=== PATIENT | female | born 1950 | race Caucasian/White ===

== ENCOUNTER 2016-06-16 21:03 | Inpatient (IN) ==
[2016-06-16 21:34] LABS: MANUAL DIFF NEEDED? NO
[2016-06-16 21:48] LABS: BASO% 0.3 % (0.0-0.8); EOS% 1.6 % (0.0-10.0); HEMATOCRIT 34.5 % (37.0-47.0); IMM GRAN# 0.02 X1000 (0.0-0.04); IMM GRAN% 0.3 % (0.0-0.5); LYMPH# 1.95 X1000 (1.2-3.4); MCH 30.8 PG (27-31); MCHC 34.8 g/dL (33-37); MCV 88.7 FL (81-99); MONO# 0.36 X1000 (0.11-0.59); MONO% 5.7 % (1.7-9.3); MPV 9.6 FL (7.4-10.4); NEUT% 61.1 % (42.2-75.2); PLT 261 X1000 (130-400); RBC 3.89 XMIL (4.2-5.4)
[2016-06-16 22:31] LABS: ALBUMIN 3.8 g/dL (3.5-5.0); CALCIUM 8.9 mg/dL (8.8-10.2); POTASSIUM 3.7 mmol/L (3.5-5.1); TOTAL BILIRUBIN 0.2 mg/dL (0.20-1.00); TOTAL PROTEIN 6.1 g/dL (6.3-8.3)
[2016-06-16 22:42] LABS: INR 1.02 (0.86-1.15); PROTIME 13.7 Seconds (12.1-15.5)
[2016-06-16 22:43] LABS: PTT PL 29.3 Seconds (22.6-43.9)
[2016-06-17 00:57] LABS: AMYLASE 60 U/L (20-200); LIPASE 68 U/L (13-60)
[2016-06-17] MEDS ORDERED: MORPHINE IV PRN ×2 (01:35→09:45)
[2016-06-17] MEDS ORDERED: NS 1,000 ML IV ONE ×3 (01:35→01:55)
[2016-06-17] MEDS ORDERED: ROCEPHIN 1 GM/NS 1 GM/50 ML IVPB IV ONE (01:35)
[2016-06-17] MEDS ORDERED: ZOFRAN IV PRN (01:35)
[2016-06-17] MEDS ORDERED: ROCEPHIN 1 GM/NS 1 GM/50 ML IVPB ONE (02:30)
[2016-06-17 03:31] LABS: BILIRUBIN URINE NEGATIVE (NEGATIVE); BLOOD URINE 3+ (NEGATIVE); CLARITY CLEAR (CLEAR); COLOR YELLOW; GLUCOSE URINE NEGATIVE (NEGATIVE); LEUKOCYTES URINE TRACE (NEGATIVE); NITRITE URINE NEGATIVE (NEGATIVE); PH URINE 6.5; PROTEIN URINE TRACE mg/dL (NEGATIVE); UROBILINOGEN URINE NORMAL
--- NOTE | 2016-06-17 03:33 | PROVIDER DOCUMENTATION ---
This chart was entered by Chelsea Villarreal Scribe, acting as scribe for Bonilla Moffett DO. HPI-Abdominal Pain/GI Problem - General Chief Complaint: General Adult Stated Complaint: CRYING, NUMBNESS, NAUSEA, ABD PAIN Time Seen by Provider: 06/16/16 21:05 Allergies/Adverse Reactions: Patient Allergies Allergy/AdvReac Type Severity Reaction Status Date / Time No Known Allergies Allergy Verified 06/16/16 21:07 Home Medications: Home Medication List Medication Instructions Recorded Confirmed Last Taken Type Metformin [Glucophage] 500 mg PO WBREAKFAST 04/26/12 05/13/14 06/16/16 History Metoprolol Tartrate 50 mg PO BID 05/13/14 05/13/14 06/16/16 History Famotidine 20 mg PO DAILY 06/16/16 06/16/16 06/16/16 History Hydrochlorothiazide 25 mg PO DAILY 06/16/16 06/16/16 06/16/16 History Lisinopril 40 mg PO DAILY 06/16/16 06/16/16 06/16/16 History Montelukast [Singulair] 10 mg PO DAILY 06/16/16 06/16/16 06/16/16 History Sertraline [Zoloft] 100 mg PO DAILY 06/16/16 06/16/16 06/16/16 History - History of Present Illness-ABD Nature of Presenting Problems: PT IS A 65YOF PRESENTING TO THE ED C/O ABD PAIN AND SWELLING. PT STATES ABD PAIN BEGAN TODAY AND SHE CONTINUES TO SWELL/ PT HAS N/V/D NO FEVER CP OR OTHER COMPLAINT AT THIS TIME. Abdominal Pain Onset Location: reports: generalized abdomen Pain Radiation: reports: no radiation Quality of Pain: reports: aching, cramping Severity in ED: reports: mild Onset/Duration: reports: 24 hours ago Timing: reports: still present Activities at Onset: reports: light activity Exposure to sick contacts?: No Modifying Factors: improves with: nothing Associated Symptoms: reports: diarrhea, fatigue, malaise, nausea, vomiting. denies: chest pain, diaphoresis, swelling/mass in abdomen Last BM: unsure Dark Stools Present?: reports: none noticed Rectal Bleeding: reports: none Rectal Pain: reports: none Emesis Description: reports: none Bruising or Bleeding Gums?: No Similar Symptoms Previously?: No Recently seen or treated by another doctor?: No Review of Systems - Adult - REVIEW OF SYSTEMS - ADULT Constitutional: reports: no symptoms reported Eyes: reports: no symptoms reported Ears, Nose, Mouth & Throat: reports: no symptoms reported Cardiovascular: reports: no symptoms reported Respiratory: reports: no symptoms reported Gastrointestinal: reports: see HPI, abdominal pain, diarrhea, nausea, poor appetite, vomiting. denies: difficulty swallowing Genitourinary: reports: no symptoms reported Musculoskeletal: reports: no symptoms reported Integumentary: reports: no symptoms reported Neurological: reports: no symptoms reported Psychiatric: reports: no symptoms reported Endocrine: reports: no symptoms reported Hematologic/Lymphatic: reports: no symptoms reported Allergic/Immunologic: reports: no symptoms reported All Other Systems: Reviewed and Negative Past History - Adult - PAST MEDICAL HISTORY-ADULT Review of Records: reports: Old Records Reviewed, Nursing Assessment Review, Medications Reviewed, Social history reviewed & non-contributory. Major Childhood Illnesses: reports: denies history Cardiovascular: reports: denies history, CHF, HTN, hyperlipidemia Respiratory: reports: asthma, COPD Gastrointestinal: reports: GERD Obstetrical/Gynecological: reports: denies history Genitourinary: reports: denies history Musculoskeletal: reports: denies history Neurological: reports: denies history, other (cysts on brain) Psychiatric: reports: denies history Endocrine/Immune: reports: Diabetes Other Conditions: reports: denies history - PRIOR SURGERIES/PROCEDURES Surgical/Procedure History: reports: appendectomy, hysterectomy, back/neck, other (cyst behind ear) - IMMUNIZATION STATUS Childhood Immunizations: NUTD Flu Vaccine: NUTD - FAMILY HISTORY Family History: reviewed, not pertinent - SOCIAL HISTORY Smoking: denies, non-smoker, quit greater than 1 year Substance Use: none/never, denies Alcohol Use Frequency: never Living Situation: family Physical Exam-General - PHYSICAL EXAM-ADULT Initial Vital Signs Reviewed: Yes - CONSTITUTIONAL General Appearance: alert, moderate distress, anxious. negative: appears well, no apparent distress - EYES Eyes: PERRL/EOMI, pink conjunctivae, fundi clear, no AV nicking - HEAD, EARS, NOSE, MOUTH & THROAT HENMT: normocephalic/atraumatic, moist mucous membranes, normal ENT inspection, TMs normal, pharynx normal - NECK Neck: non-tender, full range of motion, supple, normal inspection - RESPIRATORY Respiratory: chest non-tender, lungs clear, normal breath sounds, no pleuratic chest pain, no respiratory distress, no accessory muscle use - CARDIOVASCULAR Cardiovascular: normal peripheral pulses, regular rate, rhythm, no edema, no gallop, no JVD, no murmur - GASTROINTESTINAL (ABDOMEN) Abdominal Exam: normal bowel sounds, soft, no organomegaly, no pulsatile mass, tenderness. 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 negative: normal mood/affect Progress - PLAN OF CARE/RESULTS Progress/Plan/Lab Results: Vital Signs - 8 hr 06/16/16 21:03 Temperature 98.8 F Pulse Rate 74 Respiratory Rate 18 Blood Pressure 144/68 O2 Sat by Pulse Oximetry 96 Result Diagrams: 06/16/16 21:30 06/16/16 21:30 Departure - Departure Time of Disposition Decision: 23:00 DIAGNOSIS: Cystitis Disposition: ADMITTED INPATIENT 09 Certified Medical Emergency: Emergent Condition: Stable This chart was documented by the indicated scribe, (Chelsea Villarreal Scribe) and accurately reflects the services I performed and decisions made by , Bonilla Moffett DO, as attested by the provider's signature.
--- NOTE | 2016-06-17 03:33 | ED EKG INTERP ---
This chart was entered by Chelsea Villarreal Scribe, acting as scribe for Bonilla Moffett DO. EKG Interpretation - EKG Time of EKG reading by physician:: 21:42 EKG Read and Signed by:: Bonilla Moffett EKG Interpretation (*Must complete 3 of following elements*): Normal Rate: 74 Rhythm: NSR [place]: normal QRS: normal FL Interval: normal ST Wave: normal This chart was documented by the indicated scribe, (Chelsea Villarreal Scribe) and accurately reflects the services I performed and decisions made by , Bonilla Moffett DO, as attested by the provider's signature.
[2016-06-17 03:37] LABS: URINE CULTURE PL NEEDED? YES; URINE EPITHELIAL CELLS <10 /HPF (<10); URINE WBC <10 /HPF (<10)
[2016-06-17 03:38] LABS: URINE CRYSTAL URIC ACID PRESENT /HPF; URINE SOURCE CATH
--- NOTE | 2016-06-17 07:31 | EKG Report ---
Test Performed on : 06/16/2016 9:42:29 PM Test Reason : CHEST PAIN Blood Pressure : / mmHG Vent. Rate : 074 BPM Atrial Rate : 074 BPM P-R Int : 156 ms QRS Dur : 070 ms QT Int : 412 ms P-R-T Axes : 072 062 063 degrees QTc Int : 457 ms Normal sinus rhythm. Normal ECG When compared with ECG of 13-MAY-2014 19:46, No significant change was found Confirmed by Isabel SONG, Russell Gardner ([id number]) on 06/17/2016 7:55:48 PM
--- NOTE | 2016-06-17 07:56 | Diag Imaging Result Document ---
PROCEDURE NAME: CHEST-2 VIEWS - 06/16/2016 FRONTAL AND LATERAL CHEST, TWO VIEWS: COMPARISON: Compared to 11/10/2014. FINDINGS: The lungs are well expanded. The heart is not enlarged. The vessels are not distended. No pneumonia No pleural effusions. No free air beneath the diaphragm. IMPRESSION: No acute abnormality.
[2016-06-17] MEDS ORDERED: ROCEPHIN 1 GM/NS 1 GM/50 ML IVPB IV SCH (09:00)
--- NOTE | 2016-06-17 09:33 | Diag Imaging Result Document ---
PROCEDURE NAME: CT ABD/PELVIS W/ IV CONT ONLY - 06/16/2016 CT OF THE ABDOMEN WITH INTRAVENOUS CONTRAST: FINDINGS: There is some atelectasis in the lingula which was not present on 11/10/2014. There are multiple granulomata in the spleen. There are densely calcified gallstones in the gallbladder towards the neck without evidence of distention of the gallbladder or pericholecystic inflammation. The adrenal glands are not enlarged. The pancreas is within normal limits. There is a staghorn calculus in the renal pelvis and collecting system of the lower portion of the right kidney. There is hydronephrosis. There is no evidence of hydronephrosis on the left. There is some apparent delay of nephrographic opacification on the left side which may be due to renal vascular disease. There is dense calcification in the aorta which is not distended. There is no evidence of bowel obstruction. There is some gas and stool in the colon without evidence of dilatation. CT OF THE PELVIS WITH INTRAVENOUS CONTRAST: FINDINGS: The appendix is surgically absent. There has been hysterectomy. There is no evidence of free fluid. There is some diverticulosis in the sigmoid colon without evidence of active diverticulitis. There is no evidence of free fluid. IMPRESSION: Nephrolithiasis with hydronephrosis on the right. Diverticulosis coli. The possibility of left renal artery stenosis cannot be excluded.
[2016-06-17] MEDS ORDERED: NS 1,000 ML IV SCH (11:53)
[2016-06-17] MEDS ORDERED: APRESOLINE IV ONE (13:18)
[2016-06-17] MEDS ORDERED: SINGULAIR PO SCH (13:30)
[2016-06-17] MEDS ORDERED: ZOLOFT PO SCH (13:30)
[2016-06-17] MEDS ORDERED: PRINIVIL PO SCH (13:30)
[2016-06-17] MEDS ORDERED: PEPCID PO SCH (13:30)
[2016-06-17] MEDS ORDERED: HYDROCHLOROTHIAZIDE PO SCH (13:30)
[2016-06-17 14:51] VITALS: BP 179/70
--- NOTE | 2016-06-17 16:15 | HISTORY AND PHYSICAL ---
PRIMARY CARE PROVIDER: Dr. Chris Bills. CHIEF COMPLAINT: Numbness all over the body, abdominal pain, and dysuria. HISTORY OF PRESENT ILLNESS: Ms. Xiomara Allen is a 65-year-old female with a history of diabetes, COPD, kidney stones x5, who presented via EMS yesterday with complaints of nausea, numbness over the whole body, some diarrhea, and abdominal pain. She had a workup which revealed an abdominal CT that showed nephrolithiasis with right hydronephrosis and question whether she needed a left renal ultrasound to rule out renal artery stenosis. Her lactate was elevated at 2.6. Kidney function looked good. Her urinalysis did have some blood, bacteria, and uric acid in it but she is afebrile. Her white blood cells are normal. She just looked a little dehydrated so she received IV fluid hydration, morphine for pain control, and is now requesting to go home. She also received a dose of Rocephin and will continue scheduled Rocephin. PAST MEDICAL HISTORY: Diabetes mellitus, hypertension, depression, anxiety, hyperlipidemia, COPD, obstructive sleep apnea but does not wear CPAP, GERD. 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 Kidney stones x5 in the past, cervical cancer now status post hysterectomy. SURGICAL HISTORY: Appendectomy, hysterectomy. Had L4 and L5 surgery. Had a cyst behind her right ear removed. Had skin grafting on the right side of her nose secondary to spider bite. Had a recent stress test by Dr. Robbins. SOCIAL HISTORY: She quit smoking over 15 years ago but started at the age of 12 and smoked 2-3 packs per day. Denies alcohol or illicit drug use. She lives at home with his sister and is ambulatory with a cane. FAMILY HISTORY: Father had oral and brain cancer. He had coronary artery disease, needing a CABG and diabetes. Mother also had coronary artery disease. REVIEW OF SYSTEMS: Fourteen point review of systems were complete and all were negative except for those mentioned in the above HPI. She did state that she felt like she had passed a stone. She had some dysuria that was momentary yesterday, like a sharp pain that shot through her urethra. She also complains of dysuria now that the Kwan catheter has been placed. ALLERGIES: No known drug allergies. HOME MEDICATIONS: Pepcid 20 mg p.o. daily, hydrochlorothiazide 25 mg p.o. daily, lisinopril 40 mg p.o. daily, metformin 500 mg p.o. twice daily, metoprolol tartrate 50 mg p.o. twice daily, Singulair 10 mg p.o. daily, Zoloft 100 mg p.o. daily. LABORATORY DATA: White blood cells 6,000, hemoglobin 12, hematocrit 34, platelet count 261,000. INR is 1.02. D-dimer 0.52. Sodium 134, potassium 3.7, BUN 12, creatinine is 1.3, glucose 172, magnesium 2.2. Liver enzymes negative. Cardiac enzymes negative. ProBNP is 255. Amylase 60, lipase 68. Lactate is 2.6. Urinalysis: Trace protein, 3+ blood, negative nitrites, uric acid present, 2+ bacteria. IMAGING: EKG: Rate 74, normal sinus rhythm. Abdominal pelvic CT: Nephrolithiasis with hydronephrosis on the right. Diverticulosis coli. Possible left renal artery stenosis, could not be excluded. Chest x-ray: No acute findings. PHYSICAL EXAMINATION: VITAL SIGNS: Temperature 98.4 degrees, heart rate 65, respiratory rate 20, blood pressure 149/68, O2 saturation 96% on room air. GENERAL: Ms. Allen is a 65-year-old female in no acute distress. Able to answer questions appropriately. HEENT: Atraumatic, normocephalic. Pupils equal, round, reactive to light. Extraocular movements intact. NECK: No JVD or carotid bruits noted. CARDIOVASCULAR: S1, S2. Regular rate and rhythm. No rubs, gallops, murmurs. PULMONARY: Clear to auscultation. Bilateral breath sounds. No accessory muscle use or work of breathing noted. GI: Soft, nontender, nondistended. Positive bowel sounds x4. EXTREMITIES: Trace edema. There are +2 dorsalis and radial pulses. NEUROLOGIC: A O x4. Moves all extremities equally. ASSESSMENT AND PLAN: 1. Nephrolithiasis with hydronephrosis. She received IV fluid hydration, morphine for pain control. She currently is now pain free. She is complaining of her urinary catheter which the urine does have a moderate amount of sediment in the bag. She received Rocephin IV while she was here and will go home with Bactrim. 2. Urinary tract infection. See #1. 3. Hypertension. She received hydralazine here. Continue home medications. 4. Chronic obstructive pulmonary disease with obstructive sleep apnea. No exacerbations. Currently stable. 5. Gastroesophageal reflux disease. Continue home medications. 6. Depression and anxiety. Dictated by BAILEY Covington for Jaret Long MD cc: BAILEY Covington MD Jay Pohl, MD
--- NOTE | 2016-06-18 10:54 | DISCHARGE SUMMARY ---
ADMISSION DATE: 06/17/2016 DISCHARGE DATE: 06/17/2016 DISCHARGE DIAGNOSIS: 1. Nephrolithiasis with mild hydronephrosis. Patient declined seeing Dr. Sutton while in the hospital. 2. Urinary tract infection. Appears improving. Culture pending. 3. Hypertension. 4. Chronic obstructive pulmonary disease. 5. Depression and anxiety. CONSULTATIONS: None. PROCEDURES: None. BRIEF HOSPITAL COURSE: The patient is a 65-year-old female who was admitted as noted in the HPI, treated in the usual fashion, and blood pressure returned back to probably her baseline at 143/83. She was awake and alert. She was in no distress. She was asking to go home. DISPOSITION: The patient will be discharged home. Discussed with her she needs to follow up with her primary care, Dr. Bills, in 1 week to recheck her blood pressures as well as her hydronephrosis. She needs to follow up on her urine culture. There is a question as to whether she actually has a urinary infection. Therefore, she was discharged home on Bactrim. She will need to follow up with him as an outpatient. She was instructed that if symptoms worsen or return, she will need to immediately return to the emergency department. She had an elevated D- dimer while she was in the hospital. CT was reported as negative. She needs to follow up outpatient with an ultrasound to continue to rule out any type of DVT. cc: MD Chris Hurst MD
== END 2016-06-17 16:10 | disposition home or self-care (01) ==
LOC: P.ED 21:03 → P.EDIPHOLD 06-17 03:01
PROVIDERS: ATTEND Family Medicine

== ENCOUNTER 2019-01-18 08:23 | Day surgery (SDC) ==
[2019-01-18] MEDS ORDERED: NS 1,000 ML IV PRN (09:03)
--- NOTE | 2019-01-18 09:07 | PROVIDER DOCUMENTATION ---
HPI-Neurological Disorder - General Chief Complaint: STROKE ALERT Stated Complaint: AMS Time Seen by Provider: 01/18/19 08:30 Source: family (Sister), EMS Allergies/Adverse Reactions: Patient Allergies Allergy/AdvReac Type Severity Reaction Status Date / Time No Known Allergies Allergy Verified 12/05/18 05:07 Home Medications: Home Medication List Medication Instructions Recorded Confirmed Last Taken Type Metoprolol Tartrate 50 mg PO BID 05/13/14 01/18/19 07/19/18 20:00 History Famotidine 20 mg PO DAILY 06/16/16 01/18/19 07/19/18 10:00 History Lisinopril 40 mg PO DAILY 06/16/16 01/18/19 07/19/18 10:00 History Montelukast [Singulair] 10 mg PO HS 06/16/16 01/18/19 07/19/18 21:00 History Sertraline [Zoloft] 100 mg PO DAILY 06/16/16 01/18/19 07/19/18 20:00 History Furosemide 40 mg PO DAILY 07/14/18 01/18/19 07/19/18 10:00 History Hydralazine [Apresoline] 25 mg PO BID 07/14/18 01/18/19 07/19/18 20:00 History Potassium Chloride 10 meq PO DAILY 07/14/18 01/18/19 07/19/18 10:00 History ATORVAstatin [Lipitor] 1 tab PO DAILY 01/18/19 01/18/19 Unknown History Cholecalciferol (Vitamin D3) 5,000 units PO DAILY 01/18/19 01/18/19 Unknown History [D3-1999] - History of Present Illness-Neuro Nature of Presenting Problem: 68 yo F PMH of HTN, DM2, CKD, Cognitive Disorder, Arthritis, Debility, Depression, presents after her sister called EMS due to change in mental status. Patient was last seen at her normal baseline last night by her sister with whom she resides, patient's sister reports that around 0730 this morning the patient started calling out for help form the bathroom, her sister found her lying on the floor awake and alert, the sister stepped out of the bathroom briefly and upon returning she states that the patient was awake and making eye contact but not verbally responding to her, no tonic-clonic seizure activity reported, EMS was called. Per family, patient has baseline confusion, memory deficits and poor comprehension which has been worsening over the past several months, additionally, patient uses a cane to assist with ambulation due to arthritis and generalized weakness. Timing: reports: gone now Context: reports: other (See HPI) Character of Altered Mental Status: reports: confused Any recent trauma/injury?: reports: other (Found down in bathroom by family this morning) Character of Deficits: reports: impaired speech (Awake but briefly not verbally responsive- per family), falling New weakness or altered sensation location:: reports: none Cognitive Baseline: alert but confused Gait Baseline: uses a cane Associated Symptoms: reports: denies symptoms Similar Symptoms Previously?: No Recently seen or treated by another doctor?: No Review of Systems - Adult - REVIEW OF SYSTEMS - ADULT ROS:: ROS per family Constitutional: reports: no symptoms reported Eyes: reports: no symptoms reported Ears, Nose, Mouth & Throat: reports: no symptoms reported Cardiovascular: reports: no symptoms reported Respiratory: reports: no symptoms reported Gastrointestinal: reports: no symptoms reported Genitourinary: reports: no symptoms reported Musculoskeletal: reports: no symptoms reported Integumentary: reports: no symptoms reported Neurological: reports: see HPI, other Psychiatric: reports: no symptoms reported Endocrine: reports: no symptoms reported Hematologic/Lymphatic: reports: no symptoms reported Allergic/Immunologic: reports: no symptoms reported All Other Systems: Reviewed and Negative Past History - Adult - PAST MEDICAL HISTORY-ADULT Review of Records: reports: Nursing Assessment Review, Medications Reviewed, Social history reviewed & non-contributory. Cardiovascular: reports: HTN Gastrointestinal: reports: denies history Genitourinary: reports: kidney disease Neurological: reports: cognitive dysfunction Psychiatric: reports: denies history Endocrine/Immune: reports: denies history Diabetes Type: Type 2 Diabetes controlled by:: PO Meds - FAMILY HISTORY Family History: reviewed, not pertinent - SOCIAL HISTORY Smoking: quit greater than 1 year Substance Use: none/never Alcohol Use Frequency: never Physical Exam- Neurological - Physical Exam-Neuro Initial Vital Signs Reviewed: Yes (RR 16, BP 180/80) General Appearance: alert, slow to respond Eye Exam: bilateral eye: normal inspection HENMT: normocephalic/atraumatic Head Injury: no evidence of injury Neck: non-tender, full range of motion, supple Respiratory: chest non-tender, lungs clear, normal breath sounds Cardiovascular: normal peripheral pulses, regular rate, rhythm, no edema Abdominal Exam: normal bowel sounds, non tender, soft Lymphatic: no adenopathy Peripheral Pulses: radial (R): 2+, radial (L): 2+, carotid (R): 2+, carotid (L): 2+ Extremity: non-tender, normal inspection, no pedal edema, no calf tenderness manager process Exam: normal hearing, normal speech, PERRL. negative: abnormal eye position, abnormal gag reflex, abnormal pupil position, abnormal speech, facial asymmetry, facial droop, facial weakness, gaze palsy, tongue deviation to R, tongue deviation to L Coordination/Gait: other (Unable to test due to poor comprehension) Motor/Sensory: no motor deficit, no sensory deficit Neurologic: manager process II-XII nml as tested Integumentary: normal color, normal turgor, warm/dry Psych/Mental Status: normal mood/affect - Glascow Coma Scale Best Eye Response: (4) open spontaneously Best Verbal Response: (4) confused conversation Best Motor Response: (6) obeys commands Total Glascow Score: 14 Progress - PLAN OF CARE/RESULTS Progress/Plan/Lab Results: Vital Signs - 8 hr 01/18/19 11:23 01/18/19 11:30 01/18/19 11:45 Temperature Pulse Rate 83 84 84 Respiratory Rate 23 25 H 21 Blood Pressure 209/91 206/99 225/125 O2 Sat by Pulse Oximetry 93 L 95 95 01/18/19 14:40 Temperature 98.4 F Pulse Rate 87 Respiratory Rate 29 H Blood Pressure 177/86 O2 Sat by Pulse Oximetry 98 Laboratory Results - last 24 hr 01/18/19 01/18/19 01/18/19 09:04 09:04 09:04 WBC 5.87 RBC 4.14 L Hgb 12.4 Hct 36.6 L MCV 88.4 MCH 30.0 MCHC 33.9 RDW Std Deviation 13.4 Plt Count 164 MPV 9.8 Immature Gran % (Auto) 0.0 Neut % (Auto) 68.3 Lymph % (Auto) 24.5 [place] % (Auto) 5.6 Eos % (Auto) 1.4 Baso % (Auto) 0.2 Immature Gran # (Auto) 0.00 Neut # (Auto) 4.01 Lymph # (Auto) 1.44 [place] # (Auto) 0.33 Eos # (Auto) 0.08 Baso # (Auto) 0.01 PT INR PTT (Actin FS) Sodium 140 Potassium 3.9 Chloride 100 Carbon Dioxide 28 Anion Gap 12 BUN 11 Creatinine 1.3 H Estimated GFR/1.73 m2 41 BUN/Creatinine Ratio 8 Glucose 168 H POC Glucose Calculated Osmolality 283 Calcium 9.3 Total Bilirubin 0.44 AST 17 ALT 13 Alkaline Phosphatase 76 Troponin T Total Protein 6.0 L Albumin 4.1 Globulin 1.9 Albumin/Globulin Ratio 2.2 Triglycerides 224 H Cholesterol 199 LDL Cholesterol Direct 122 VLDL Cholesterol, Calc 45 HDL Cholesterol 37 L Coronary Risk Interp 5.00 Urine Source Urine Color Urine Turbidity Urine pH Ur Specific [place] Urine Protein Ur Glucose (Stick) Ur Ketones (Stick) Urine Blood Urine Nitrite Urine Bilirubin Urobilinogen Dipstick Urine Leukocytes Urine WBC (Auto) Urine RBC (Auto) U Epithel Cells (Auto) Urine Bacteria (Auto) Urine Crystals Small Round Cells Urine Casts Urine Yeast-like Cells Urine Opiates Screen Ur Oxycodone Screen Ur Methadone, Qual Ur Barbiturates Screen Ur Phencyclidine Scrn Ur Amphetamines Screen U Benzodiazepines Scrn Urine Cocaine Screen U Cannabinoids Screen 01/18/19 01/18/19 01/18/19 09:04 09:04 09:32 WBC RBC Hgb Hct MCV MCH MCHC RDW Std Deviation Plt Count MPV Immature Gran % (Auto) Neut % (Auto) Lymph % (Auto) [place] % (Auto) Eos % (Auto) Baso % (Auto) Immature Gran # (Auto) Neut # (Auto) Lymph # (Auto) [place] # (Auto) Eos # (Auto) Baso # (Auto) PT 14.4 INR 1.11 PTT (Actin FS) 26.5 Sodium Potassium Chloride Carbon Dioxide Anion Gap BUN Creatinine Estimated GFR/1.73 m2 BUN/Creatinine Ratio Glucose POC Glucose 150 H Calculated Osmolality Calcium Total Bilirubin AST ALT Alkaline Phosphatase Troponin T < 0.010 Total Protein Albumin Globulin Albumin/Globulin Ratio Triglycerides Cholesterol LDL Cholesterol Direct VLDL Cholesterol, Calc HDL Cholesterol Coronary Risk Interp Urine Source Urine Color Urine Turbidity Urine pH Ur Specific [place] Urine Protein Ur Glucose (Stick) Ur Ketones (Stick) Urine Blood Urine Nitrite Urine Bilirubin Urobilinogen Dipstick Urine Leukocytes Urine WBC (Auto) Urine RBC (Auto) U Epithel Cells (Auto) Urine Bacteria (Auto) Urine Crystals Small Round Cells Urine Casts Urine Yeast-like Cells Urine Opiates Screen Ur Oxycodone Screen Ur Methadone, Qual Ur Barbiturates Screen Ur Phencyclidine Scrn Ur Amphetamines Screen U Benzodiazepines Scrn Urine Cocaine Screen U Cannabinoids Screen 01/18/19 01/18/19 09:45 09:45 WBC RBC Hgb Hct MCV MCH MCHC RDW Std Deviation Plt Count MPV Immature Gran % (Auto) Neut % (Auto) Lymph % (Auto) [place] % (Auto) Eos % (Auto) Baso % (Auto) Immature Gran # (Auto) Neut # (Auto) Lymph # (Auto) [place] # (Auto) Eos # (Auto) Baso # (Auto) PT INR PTT (Actin FS) Sodium Potassium Chloride Carbon Dioxide Anion Gap BUN Creatinine Estimated GFR/1.73 m2 BUN/Creatinine Ratio Glucose POC Glucose Calculated Osmolality Calcium Total Bilirubin AST ALT Alkaline Phosphatase Troponin T Total Protein Albumin Globulin Albumin/Globulin Ratio Triglycerides Cholesterol LDL Cholesterol Direct VLDL Cholesterol, Calc HDL Cholesterol Coronary Risk Interp Urine Source CATH Urine Color YELLOW Urine Turbidity HAZY Urine pH 6.0 Ur Specific [place] 1.016 Urine Protein 100 A Ur Glucose (Stick) TRACE Ur Ketones (Stick) NEGATIVE Urine Blood SMALL A Urine Nitrite NEGATIVE Urine Bilirubin NEGATIVE Urobilinogen Dipstick NORMAL Urine Leukocytes NEGATIVE Urine WBC (Auto) <10 Urine RBC (Auto) <10 U Epithel Cells (Auto) <10 Urine Bacteria (Auto) 1+ Urine Crystals CA OXALATE PRESENT Small Round Cells Not Reportable Urine Casts Not Reportable Urine Yeast-like Cells Not Reportable Urine Opiates Screen NONE DETECTED Ur Oxycodone Screen NONE DETECTED Ur Methadone, Qual NONE DETECTED Ur Barbiturates Screen NONE DETECTED Ur Phencyclidine Scrn NONE DETECTED Ur Amphetamines Screen NONE DETECTED U Benzodiazepines Scrn NONE DETECTED Urine Cocaine Screen NONE DETECTED U Cannabinoids Screen NONE DETECTED Orders Category Date Time Status Admit - [facility] Routine AdmDCTranf 01/18/19 12:22 Active Activity - Bedrest with BSC ORDERED Care 01/18/19 12:22 Active Apply Mechanical Device [QM] ORDERED Care 01/18/19 12:22 Active Cardiac Monitoring DIRECTED Care 01/18/19 09:03 Completed FSBS/Accucheck Result AC + HS Care 01/18/19 12:27 Active Finger Stick Blood Sugar (ED) DIRECTED Care 01/18/19 09:03 Completed Intake and Output-Strict ORDERED Care 01/18/19 12:22 Active Misc. NRSG Communication Order DIRECTED Care 01/18/19 09:03 Active Neurological Check Q4H Care 01/18/19 12:25 Active Oxygen Therapy- ED Nursing DIRECTED Care 01/18/19 09:03 Active Saline Loc NOW Care 01/18/19 09:03 Active Vital Signs Order Q 8-HR ASSESS Care 01/18/19 12:22 Active Z-Document. for Tele Applied ORDERED Care 01/18/19 12:24 Active Social Service Consult Routine Cons 01/18/19 12:22 Active Diabetic Diet Diet 01/18/19 14:37 Active CHEST-PORTABLE [RAD] Stat Exams 01/18/19 09:[address] HEAD/C-SPINE W/O CONTRAST [CT] Stat Exams 01/18/19 08:25 Completed BLOOD CULTURE [BLDCUL] Stat Lab 01/18/19 11:15 Results CBC WITH ELECTRONIC DIFF [HEME] Stat Lab 01/18/19 09:04 Completed COMPREHENSIVE METABOLIC PANEL [CHEM] Stat Lab 01/18/19 09:04 Completed LIPID PROFILE W/DIR LDL [LIPIDS] Stat Lab 01/18/19 09:04 Completed PROTIME WITH INR [COAG] Stat Lab 01/18/19 09:04 Completed PTT [COAG] Stat Lab 01/18/19 09:04 Completed TROPONIN T Stat Lab 01/18/19 09:04 Completed URINALYSIS W/POSS RFLX CULT [URINALYSIS] Stat Lab 01/18/19 09:45 Completed URINE DRUG SCREEN Stat Lab 01/18/19 09:45 Completed URINE MANUAL MICROSCOPIC [URINALYSIS] Stat Lab 01/18/19 09:45 Completed 0.9% Sodium Chloride Inj [Ns] 1,000 ml Med 01/18/19 09:03 Active IV Per Protocol mls/hr Hydralazine [Apresoline] Med 01/18/19 12:28 Active 10 mg IV Q4H PRN PRN Insulin Lispro [Humalog] Med 01/18/19 16:00 Active See Protocol SUBQ 0700,1100,1600,2100 Telemetry [OM.EQ] Routine Oth 01/18/19 12:22 Active Carotid Ultrasound Routine Ther 01/18/19 12:26 Draft EKG [EKG] Stat Ther 01/18/19 09:21 Draft Echo Spec/Color Doppler Routine Ther 01/18/19 12:25 Completed Physical Therapy Eval/Treatment [OM.PT] Routine Ther 01/18/19 12:22 Active Transfer/Admit Order [TRANSFER] Routine Transfer 01/18/19 16:09 Completed No family at bedside, per EMS patient last known normal at 0740 this morning, patient now appears confused and is not able to follow commands appropriately. Patient's sister at bedside, reports patient was last seen at her normal baselin e last night, she was in the bathroom this morning when she suddenly shouted out for help, her sister found her lying on the bathroom floor but is unsure of what happened, patient's sister states patient has multiple medical problems, worsening memory deficits and has been intermittently confused for several months which she attributes to her kidney disease. Result Diagrams: 01/18/19 09:04 01/18/19 09:04 - EKG 1 EKG Read and Signed by:: Jodi Robin EKG Interpretation (*Must complete 3 of following elements*): Normal Rate: 84 Rhythm: NSR [place]: normal QRS: normal OK Interval: normal ST Wave: normal Prior EKG Comparison: no prior EKG Comments: Poor quality EKG 2/2 motion/artifact - XRAY 1 XRAY Study: Chest Impression: See EMR Report (CHEST-PORTABLE - 01/18/2019 INDICATION: stroke like symptoms COMPARISON: 06/28/2017 FINDINGS: The lungs are normally expanded and clear. Heart size and mediastinal contours are normal. No pneumothorax or pleural effusion. IMPRESSION: Negative exam. Electronically signed by Stevenson Amato 01/18/2019 10:13 AM) - CT/MRI 1 CT Study: Head Impression: See EMR Report (EXAM: CT HEAD/C-SPINE W/O CONTRAST 01/18/2019 HISTORY: STROKE ALERT TECHNIQUE: This exam was performed using automated exposure control, adjustment of mA or kV according to patient size, and/or use of iterative reconstruction technique. COMMENT: There are no previous studies available for comparison. There is a large CSF density collection in the left temporal lobe measuring in excess of 5.1 cm in diameter. There is no evidence of bleed or abnormal extra-axial fluid collection. There is some calcification in the choroid plexus in the left temporal horn which is displaced medially. Otherwise there is no evidence of mass effect, bleed, or abnormal extra-axial fluid collection. The calvarium is intact. The visualized paranasal sinuses are clear. Cervical spine: There is some reversal normal lordotic curvature of the cervical spine which is presumably due to positioning. The facets are aligned. There is no prevertebral soft tissue swelling or fracture. The visualized portion of the lung apices is within normal limits. IMPRESSION: 1. Left temporal arachnoid cyst. No evidence of acute intracranial disease otherwise. Advise comparison with previous studies if available. 2. No evidence of acute disease in the cervical spine. Electronically signed by Terrell Valdes 01/18/2019 9:02 AM) - CONSULTS/PCP/HOSPITALIST Notification #1 *Consult/PCP/Hospitalist*: [facility] Time Discussed: 10:00 Reason/Comments: Discussed clinical presentation, advised no indication for TPA Consult Disposition: Admit #2 Consult: DIRECTOR OF ACADEMIC (Shannan) Time Discussed: 11:59 Reason/Comments: Admit to observation TIA/stroke Departure - Departure Date of Disposition Decision: 01/18/19 Time of Disposition Decision: 12:27 DIAGNOSIS: TIA (transient ischemic attack), Cognitive decline Diabetes mellitus Qualifiers: Diabetes mellitus type: type 2 Diabetes mellitus assisted insulin use: without petroleum terminal plant operator use Diabetes mellitus complication status: with other specified complication Qualified Code(s): E11.69 - Type 2 diabetes mellitus with other specified complication Hypertension Qualifiers: Hypertension type: essential hypertension Qualified Code(s): I10 - Essential (primary) hypertension CKD (chronic kidney disease) Qualifiers: Chronic kidney disease stage: stage 3 (moderate) Qualified Code(s): N18.3 - Chronic kidney disease, stage 3 (moderate) Disposition: ADMITTED INPATIENT 09 Certified Medical Emergency: Emergent Condition: Stable - Critical Care Note This patient required my direct & personal management of CC.: Yes Total Time (mins): 45 Critical Care Statement: This patient required my direct personal management to treat or rule out processes, the absence of which, could potentiallly result in sudden, clinically significant life or limb threatening deterioration. Attestation - Physician/ CAMI Attestation Patient care was provided by Advanced Practice Provider:: No The physician spent face to face time with patient:: Yes Advanced Practice Provider documentation review:: Supervising physician onsite and consulted in the evaluation and care of this patient. The physician did have a face to face encounter with the patient. - NIH Stroke Scale Level of Consciousness: 0-Alert LOC Questions (ask month and age): 2-Both Incorrect LOC Commands (ask to open & close eyes;make a fist, let go): 0-Obeys Both Correctly Best Gaze (horizontal eye movement): 0-Normal Visual (use finger movement, counting or visual threat): 0-No Visual Loss Facial Palsy (show teeth or raise eyebrows & close eyes tght: 0-Symmetrical Movement Motor Function-left arm: 0-Normal Motor Function-right arm: 0-Normal Motor Function-left le-Normal Motor Function-right le-Normal Limb Ataxia([id number], or heel to sin): 0-No Ataxia Sensory(pin prick to face,arms,trunk,legs-compare side/side): 0-No Ataxia Best Language(name item/read sentence.Ex-Down to Earth): 0-No Aphasia Dysarthria(Pt read words or say words Ex.Mama,Tip-Top,Thanks: 0-Normal Articul ation Extinction and Inattention: 0-Normal NIH Total Score: 3 Modified [place]ama Score Criteria: 0-no symptoms Stroke tPA Guidelines - Inclusion Criteria for IV tPA 18 years old or older: Yes Ischemic stroke with measurable deficit: No Onset <3 hours ago *OR* 3-4.5 hours ago: Unable to Obtain (Patient has baseline confusion, comprehension and memory deficits.) - Exclusion Criteria for IV tPA Evidence of intracranial hemorrhage on CT: No Presentation suggest SAH: No CT reveals defined area of hypodensity: No Evidence of AVM, neoplasm, aneurysm: No Seizure at stroke onset: No Active internal bleeding or acute trauma: No Platelet Count Less Than 100,000: No Heparin Within Last 48 HRS (PTT >Lab normal limits): No INR > 1.7 (warfarin use): No Use IIB/IIIA inhibitors within 24 hours: No Serious Head Trauma Within Last 3 Months: No Arterial Puncture Within Last 7 Days: No Lumbar Puncture Within Last 7 Days: No Repeated systolic Blood Pressure >185 or Diastolic >110: No - Additional Exclusion Criteria for IV tPA Currently on Coumadin: No Patient older than 80: No Prior stroke and diabetes: No Baseline NIHSS score > 25: Unable to Obtain - Relative Contraindications to IV tPA CT reveals extensive area of infarct (>1/3 MCA territory): No Minor or rapidly improving stroke symptoms: Unable to Obtain Major Surgery or Serious Trauma In Previous 14 Days: No AMI within 3 months: No Gastrointestinal or Urinary Tract hemorrhage in Past 21 Days: No Post - AMI pericarditis: No Blood Glucose Less Than 50 mg/dl or Greater Than 400 mg/dl: No - Consultation Candidate for:: NOT A CANDIDATE (Chronic baseline confusion and generalized debility, no new deficits on ER evaluation)
[2019-01-18 09:18] LABS: BASO# 0.01 X1000 (0.0-0.2); BASO% 0.2 % (0.0-0.8); EOS# 0.08 X1000 (0.0-0.7); EOS% 1.4 % (0.0-10.0); HEMATOCRIT 36.6 % (37.0-47.0); HEMOGLOBIN 12.4 g/dL (12.0-16.0); LYMPH# 1.44 X1000 (1.2-3.4); LYMPH% 24.5 % (20.5-51.1); MCHC 33.9 g/dL (33-37); MCV 88.4 FL (81-99); MONO# 0.33 X1000 (0.11-0.59); MONO% 5.6 % (1.7-9.3); MPV 9.8 FL (7.4-10.4); NEUT# 4.01 X1000 (1.4-6.5); NEUT% 68.3 % (42.2-75.2); PLT 164 X1000 (130-400); RBC 4.14 XMIL (4.2-5.4); RDW 13.4 % (11.5-14.5); WBC 5.87 X1000 (4.8-10.8)
[2019-01-18 09:29] LABS: INR 1.11; PROTIME 14.4 Seconds (11.0-16.0)
[2019-01-18 09:30] LABS: PTT 26.5 Seconds (22.3-41.8)
[2019-01-18 09:35] LABS: ALB/GLOB RATIO 2.2; ALBUMIN 4.1 g/dL (3.5-5.0); CALCIUM 9.3 mg/dL (8.8-10.2); CREATININE 1.3 mg/dL (0.5-0.9); POTASSIUM 3.9 mmol/L (3.5-5.1); TOTAL BILIRUBIN 0.44 mg/dL (0.20-1.00)
[2019-01-18 09:56] LABS: URINE SOURCE CATH
[2019-01-18 10:03] LABS: BILIRUBIN URINE NEGATIVE (NEGATIVE); BLOOD URINE SMALL (NEGATIVE); COLOR YELLOW; GLUCOSE URINE TRACE mg/dL (NEGATIVE); KETONE URINE NEGATIVE (NEGATIVE); LEUKOCYTES URINE NEGATIVE (NEGATIVE); NITRITE URINE NEGATIVE (NEGATIVE); PROTEIN URINE 100 mg/dL (NEGATIVE); SP GRAVITY URINE 1.016; TURBIDITY URINE HAZY (CLEAR); UROBILINOGEN URINE NORMAL (NORMAL)
[2019-01-18 10:12] LABS: UR AMPHETAMINES QUAL NONE DETECTED (NONE DETECT); UR BARBITUATES QUAL NONE DETECTED (NONE DETECT); UR BENZODIAZEPIN QUAL NONE DETECTED (NONE DETECT); UR CANNABINOIDS QUAL NONE DETECTED (NONE DETECT); UR COCAINE QUAL NONE DETECTED (NONE DETECT); UR EPITHELIAL CELLS <10 /HPF (<10); UR METHADONE QUAL NONE DETECTED (NONE DETECT); UR OPIATES QUAL NONE DETECTED (NONE DETECT); UR OXYCODONE QUAL NONE DETECTED (NONE DETECT); UR PCP QUAL NONE DETECTED (NONE DETECT); URINE BACTERIA 1+ /HPF; URINE RBC <10 /HPF (<10); URINE WBC <10 /HPF (<10)
--- NOTE | 2019-01-18 10:16 | Diag Imaging Result Doc PS360 ---
CHEST-PORTABLE - 01/18/2019 INDICATION: stroke like symptoms COMPARISON: 06/28/2017 FINDINGS: The lungs are normally expanded and clear. Heart size and mediastinal contours are normal. No pneumothorax or pleural effusion. IMPRESSION: Negative exam. Electronically signed by Stevenson Amato 01/18/2019 10:13 AM
[2019-01-18 10:39] LABS: URINE CRYSTALS CA OXALATE PRESENT
--- NOTE | 2019-01-18 13:49 | EKG Report ---
Test Performed on : 01/18/2019 09:21:51 AM Test Reason : Stroke like symptoms Blood Pressure : / mmHG Vent. Rate : 084 BPM Atrial Rate : 084 BPM P-R Int : 178 ms QRS Dur : 066 ms QT Int : 384 ms P-R-T Axes : 078 057 065 degrees QTc Int : 453 ms Normal sinus rhythm. Normal ECG When compared with ECG of 14-JUL-2018 13:52, T wave amplitude has increased in Lateral leads Unconfirmed Result
--- NOTE | 2019-01-18 14:16 | HISTORY AND PHYSICAL ---
PRIMARY CARE PHYSICIAN: Dr. Jaret Long. CHIEF COMPLAINT: Fall, altered mental status. HISTORY OF PRESENT ILLNESS: This is a 68-year-old female with a history of hypertension, diabetes mellitus, chronic kidney disease, hypertension and arachnoid cyst, who presents to the emergency room via EMS after being called by the patient's sister. The patient's sister states that she saw the patient last night. She was in her normal state. This morning, she heard the patient calling out from the bathroom, and when she went to check on her she found her lying on the floor. She said at this time she was awake, alert, in her normal state of mind. She left to go get a phone to call for lifting help; when she came back, she stated that the patient was awake, but she did not verbally respond. She denied seeing any seizure activity or any incontinence of stool or urine. PAST MEDICAL HISTORY: Diabetes mellitus, hypertension, depression, hyperlipidemia, COPD, sleep apnea. The patient refuses to wear CPAP. Arachnoid cyst. PAST SURGICAL HISTORY: Appendectomy, hysterectomy, lumbar back surgery, skin graft to right side of her nose secondary to spider bite, cholecystectomy. SOCIAL HISTORY: She quit smoking about 17 years ago. She started smoking at age 12 and smoked 2 to 3 packs a day. She lives at home with her sister. She ambulates with a cane. They deny any alcohol or illicit drug use. ALLERGIES: No known drug allergies. HOME MEDICATIONS: A list will be obtained by the nursing staff and, once verified, will review and restart as appropriate. FAMILY HISTORY: Positive for father who had brain cancer, coronary artery disease, diabetes. Mother had coronary artery disease. REVIEW OF SYSTEMS: Discussed with patient and sister with pertinent positives stated in the HPI. She denied any dizziness, syncope, any chest pain or palpitations, shortness of breath, cough, fever, chills, night sweats, recent weight loss or weight gain, any nausea, vomiting, diarrhea, constipation, black or bloody vomitus or stools, hematuria, dysuria, frequency, urgency. PHYSICAL EXAMINATION: GENERAL: This is a 68-year-old female, who is lying on the stretcher in the emergency room in no distress. VITAL SIGNS: Blood pressure is 209/91 with a heart rate of 83, respirations are 20, temperature is 98.3 degrees oral with room air saturations 93% to 96%. EYES: Pupils are equal, round, react to light. EOMS are intact. Sclerae are anicteric. HENT: Head is normocephalic, atraumatic. Mucous membranes are moist. NECK: Supple with trachea midline. CARDIOVASCULAR: Regular rate and rhythm. S1 and S2 appreciated. She has no lower extremity edema. Calves are nontender bilateral with peripheral pulses palpable x4 extremities. PULMONARY: Breath sounds are clear with no increased work of breathing noted. Chest rises and falls symmetric with respiration. Chest wall is nontender to palpation. GASTROINTESTINAL: Abdomen is soft, nontender, nondistended with bowel sounds in all 4 quadrants. GENITOURINARY: No CVA nor suprapubic tenderness. NEUROLOGIC: Pupils are equal, round, react to light. EOMS are intact. She has no facial droop. Speech is clear. No tongue nor uvula deviation. Equal shoulder shrug. She moves extremities at random and to command. Unable to do [id number] or foot [id number] as the patient cannot comprehend the instructions. According to her sister, this is her normal baseline. LABS: WBC is 5.8 with hemoglobin 12.4, hematocrit 36.6, and platelets of 164. Sodium 140, potassium 3.9. BUN 11, creatinine 1.3 with a glucose of 168. Triglycerides are 224 with cholesterol 199. Urinalysis reveals small ketones, otherwise essentially negative. Urine drug screen reveals none detected. X-RAYS: 1. Chest x-ray reveals a negative exam. Lungs are normally expanded and clear. Heart size and mediastinal contours are normal. No pneumothorax or pleural effusion. 2. CT of the head reveals left temporal arachnoid cyst. No evidence of acute intracranial disease otherwise. 3. CT of the cervical spine reveals no evidence of acute disease. ASSESSMENT AND PLAN: 1. Transient ischemic attack versus cerebrovascular accident. 2. Recent decline in mental status with increasing confusion, memory deficits, and poor comprehension over the last few months. 3. Chronic kidney disease stage III. 4. Diabetes mellitus. 5. Hypertension. 6. Known arachnoid cyst. 7. Gastroesophageal reflux disease. PLAN: The patient will be admitted to the hospital and placed on telemetry with neuro checks every 4 hours. We will identify her home medications and continue as appropriate. Pattern blood glucose with sliding scale insulin. We will allow for permissive hypertension giving hydralazine 10 mg q. 4 hours p.r.n. a systolic blood pressure greater than 180. We will obtain a carotid ultrasound, as well as an echocardiogram. Consult physical therapy. Recheck a CBC and CMP in the morning. We will consult Click[facility] Operator for discharge planning. Plan was discussed with Dr Rodriguez. Further treatments pending hospital course. Dictated by BAILEY Bauman for Estrada Lindquist MD cc: BAILEY Bauman MD [facility]
[2019-01-18] MEDS: APRESOLINE IV PRN (17:08)
[2019-01-18] MEDS ORDERED: ZOFRAN IV PRN (17:59)
[2019-01-18] MEDS: HUMALOG SUBQ SCH ×2 (18:26→21:32)
--- NOTE | 2019-01-18 18:52 | Carotid Study ---
DATE: 01/18/2019 REFERRING PHYSICIAN: BAILEY Bauman. INTERPRETING PHYSICIAN: Dr. Hayden. [employer] SUPERINTENDENT: Anna Hummel RVT. The patient has had a TIA versus CVA. The velocities are noted. Plaque is present in both carotid bulbs. The internal and common carotid ratio on the right is 1.9, left 0.9. Percent stenosis 40 to 59% on the right and 0 to 39% on the left. INTERPRETATION: Plaque disease present in both carotid bulbs. Neither side yet produces stenosis of hemodynamic consequence. There is antegrade vertebral flow bilaterally. cc: MD Kaelyn Dela Cruz CRNP [facility]
--- NOTE | 2019-01-18 18:56 | HISTORY AND PHYSICAL ---
ADDENDUM: The patient seen and examined by me [id number]. All the laboratory, vital signs and images were reviewed. The patient presented to the emergency department, and her sister is at the bedside. They live together, and actually the sister is taking care of her. Apparently she fell, and she called the sister, and when the sister was about to get some help to pick her up she was basically unresponsive. She tried to stimulate her, and she called her name, but she was not waking up. She denied seeing any seizure activity. No incontinence of stools or urine. At the moment of my exam, she was completely back to her baseline. She was complaining of some nausea, though. We were concerned about TIA versus stroke so we are going to allow high blood pressure for this patient. As per the sister, she started having the symptoms at 7:30 a.m. so tomorrow at 7:30 a.m., I will restart her medications for the blood pressure. We did a CT scan of the head and cervical spine that showed a left temporal arachnoid cyst but no evidence of acute intracranial disease. No evidence of acute cervical spine problems either. Chest x-ray was negative as well. Like I mentioned before, a blood pressure was elevated. I do not see any source of infection in the urine or chest or skin. Blood sugar slightly elevated. I will ask for a hemoglobin A1c. Her creatinine is at baseline. She has chronic kidney disease. We ask for an echocardiogram, carotid ultrasound and also a brain MRI. We will continue to monitor with CBC, CMP, and depending on her findings, I will get the brain doctor to see this patient. cc: Estrada Lindquist MD
--- NOTE | 2019-01-18 20:06 | ECHO REPORT ---
ORDER DATE: 01/18/2019 INDICATION: TIA/stroke. M-MODE MEASUREMENTS: Left ventricle end diastole: 3.3. Left ventricle end systole: 2.5. Posterior wall: 0.8. Interventricular septum: 0.9. Left atrium: 3.8. Aortic diameter: 3.0. SUMMARY OF 2-DIMENSIONAL IMAGING: The study is difficult. 1. Left ventricular function appears to be normal. Ejection fraction is visually estimated at 60% to 65%. There is no wall motion abnormality. 2. The aortic valve shows a mild degree of sclerosis of the cusps. Color flow mapping unremarkable. 3. The mitral valve looks grossly normal. Color flow mapping is unremarkable. 4. Pulsed wave Doppler of mitral inflow shows reversal of the E/A ratio. The ratio is 0.7. 5. Tissue Doppler of septal and lateral mitral annulus averages 4 cm. There is impaired left ventricular relaxation. 6. Pulmonary valve is grossly unremarkable. A trivial pericardial effusion is present. 7. The tricuspid valve shows no significant regurgitation. 8. Pulmonary pressure cannot be properly calculated because of no evidence of any significant jet of tricuspid regurgitation. SUMMARY: This study shows: 1. Normal left ventricular systolic function. 2. Impaired left ventricular relaxation. 3. Pulmonary pressure cannot be calculated. 4. Unremarkable valvular structures. There is some calcification of the mitral annulus. Clinical correlation is recommended. cc: MD Kaelyn Amaral CRNP
[2019-01-18] MEDS ORDERED: SINGULAIR PO SCH (21:00)
[2019-01-19] MEDS: APRESOLINE IV PRN (04:34)
[2019-01-19 05:17] LABS: BASO# 0.01 X1000 (0.0-0.2); BASO% 0.2 % (0.0-0.8); EOS# 0.07 X1000 (0.0-0.7); EOS% 1.2 % (0.0-10.0); HEMATOCRIT 32.2 % (37.0-47.0); LYMPH# 1.62 X1000 (1.2-3.4); LYMPH% 28.6 % (20.5-51.1); MCH 30.6 PG (27-31); MCHC 34.2 g/dL (33-37); MCV 89.4 FL (81-99); MONO# 0.43 X1000 (0.11-0.59); MONO% 7.6 % (1.7-9.3); NEUT# 3.54 X1000 (1.4-6.5); NEUT% 62.4 % (42.2-75.2); PLT 154 X1000 (130-400); RDW 13.6 % (11.5-14.5); WBC 5.67 X1000 (4.8-10.8)
[2019-01-19 05:32] LABS: HEMOGLOBIN A1C 5.9 % (4.8-6.0)
[2019-01-19 05:38] LABS: ALB/GLOB RATIO 1.9; ALBUMIN 3.8 g/dL (3.5-5.0); CALCIUM 9.1 mg/dL (8.8-10.2); CREATININE 1.3 mg/dL (0.5-0.9); POTASSIUM 3.8 mmol/L (3.5-5.1); TOTAL BILIRUBIN 0.44 mg/dL (0.20-1.00); TOTAL PROTEIN 5.8 g/dL (6.3-8.3)
[2019-01-19] MEDS: HUMALOG SUBQ SCH ×4 (06:08→20:55)
[2019-01-19] MEDS ORDERED: TYLENOL PO PRN (06:30)
[2019-01-19] MEDS ORDERED: ZOLOFT PO SCH (09:00)
[2019-01-19] MEDS ORDERED: VITAMIN D PO SCH (09:00)
[2019-01-19] MEDS ORDERED: LIPITOR PO SCH (09:00)
--- NOTE | 2019-01-19 09:28 | Diag Imaging Result Doc PS360 ---
MRI BRAIN W/O CONTRAST - 01/18/2019 INDICATION: R/O stroke COMPARISON: 01/18/2019, 04/29/2012 FINDINGS: There is no area of restricted diffusion. There is a stable large benign arachnoid cyst within the left temporal lobe. This measures 5.7 x 3.7 cm. There is stable moderately extensive cerebral white matter hyperintensity compatible with chronic microvascular ischemia. No intracranial mass or hemorrhage. Midline structures are normal. IMPRESSION: No acute process. Electronically signed by Stevenson Amato 01/19/2019 9:26 AM
[2019-01-19] MEDS: KLOR-CON PO SCH (10:03)
[2019-01-19] MEDS: PRINIVIL PO SCH (10:03)
[2019-01-19] MEDS: PEPCID PO SCH (10:03)
[2019-01-19] MEDS: LASIX PO SCH (10:03)
[2019-01-19] MEDS: LOPRESSOR PO SCH ×2 (10:04→20:49)
[2019-01-19] MEDS: APRESOLINE PO SCH ×2 (10:04→20:49)
--- NOTE | 2019-01-19 12:40 | PROGRESS NOTE ---
DATE: 01/19/2019 SUBJECTIVE: The patient seems to be resting comfortably in bed. I have restarted all her home medications. I do not have any evidence of stroke. We did a brain MRI and also an echocardiogram and carotid Doppler ultrasound that did not show any acute abnormality or significant stenosis, only some plague disease in both carotic bulbs. I do not have any source of infection either. White blood cell count is normal. Apparently this patient fell yesterday and then she had a transient episode where she was not able to wake up and/or respond, and everything happened after that fall, apparently she hit her head, but CT of the head and brain MRI are negative. She is not having episodes of hypoglycemia during this hospitalization. I do not see any medication listed for diabetes at home but the hemoglobin A1c is 5.9, she does have chronic kidney disease. OBJECTIVE: Vital Signs: Temperature 97.9 degrees, pulse 98, respiratory rate 16, blood pressure at 8 a.m. 193/71 before starting medications. Oxygen saturation 98 on 2 L of nasal cannula. HEENT: Head normocephalic. She does have a hematoma at the level of the left maxillary area, and also some pain to palpation at the level of the left parietal area. Neck: Supple. No JVD, central trachea. Chest: Clear to auscultation. No wheezing. No rales. Abdomen: Soft, nontender, nondistended. No hepatosplenomegaly. Extremities: No edema, no clubbing, no cyanosis. Neurological: The patient is alert. She is oriented x3. She is complaining of generalized soreness. LABORATORY DATA: WBC 5.6, hemoglobin 11, hematocrit 32.2, platelets 154,000. Sodium 144, potassium 3.8, chloride 104, bicarbonate 28, BUN 13, creatinine 1.3, glucose 152, calcium 9.1. ASSESSMENT: 1. Transient episode of unresponsiveness, probably related to a transient ischemic attack, a stroke has been ruled out. We did a CT scan of the head, MRI, carotid ultrasound and echocardiogram and they did not show any acute problem. I have requested physical therapy evaluation to see how she does. I do not see any focal weakness but generalized weakness and as per the patient, she is sore, no evidence of seizures. 2. Recent decline in mental status with increasing confusion, memory deficits and poor comprehension over the last few months. Aware. 3. Chronic kidney disease stage III, stable. 4. Type 2 diabetes, hemoglobin A1c is good at 5.9. We will continue with the same management. 5. Hypertension. I have placed this patient back on her home medications. We allowed permissive hypertension for 24 hours already. 6. Known arachnoid cyst, with no signs of bleeding. We will monitor. 7. Gastroesophageal reflux disease. Continue with same management. 8. Generalized weakness and physical deconditioning. This patient has been placed on physical therapy. I talked to her about rehab and looking for a rehab center for her but she refused this option. cc: Estrada Lindquist MD
[2019-01-19] MEDS: ZOLOFT PO SCH (14:02)
[2019-01-19] MEDS: SINGULAIR PO SCH (20:49)
[2019-01-19] MEDS: LIPITOR PO SCH (20:49)
[2019-01-20 05:34] LABS: CREATININE 1.4 mg/dL (0.5-0.9); POTASSIUM 3.8 mmol/L (3.5-5.1)
[2019-01-20] MEDS: HUMALOG SUBQ SCH ×4 (06:17→20:02)
[2019-01-20] MEDS: LASIX PO SCH (09:45)
[2019-01-20] MEDS: KLOR-CON PO SCH (09:45)
[2019-01-20] MEDS: APRESOLINE PO SCH ×4 (09:45→18:24)
[2019-01-20] MEDS: PEPCID PO SCH (09:45)
[2019-01-20] MEDS: ZOLOFT PO SCH (09:45)
[2019-01-20] MEDS: PRINIVIL PO SCH (09:45)
[2019-01-20] MEDS: LOPRESSOR PO SCH ×2 (09:45→20:01)
--- NOTE | 2019-01-20 09:54 | PROGRESS NOTE ---
DATE: 01/20/2019 SUBJECTIVE: This patient is resting comfortably in bed, actually she when I examined her she was sitting on the bed, and eating by herself. She is completely awake, alert, and oriented x3. All the laboratory has been stable as well as the images. I have requested reevaluation by Neurology Department. As per the sister, when she found this patient on the floor she was completely fine, apparently she hit her head, when she was looking for help to lift this patient up she found this patient basically lying on the floor and unresponsive. She regained consciousness after some time. OBJECTIVE: Vital Signs: Temperature 98.1, pulse 72, respiratory rate 15, blood pressure 181/61, oxygen saturation 99 on 2 L of nasal cannula. HEENT: Head normocephalic. She does have a hematoma a little bit of the left maxillary area and also pain to palpation at the level of the left parietal area. Neck: Supple. No JVD. Central trachea. Chest: Clear to auscultation. No wheezing, no rales. Abdomen: Soft, protuberant, nontender, nondistended. No hepatosplenomegaly. Extremities: No edema, no clubbing, no cyanosis. Neurological examination: At this moment, this patient is alert, awake, oriented x3. She is complaining of generalized weakness. LABORATORY: Sodium 140, potassium 3.8, chloride 102, bicarbonate 31, BUN 16, creatinine 1.4, glucose 152, calcium 9. ASSESSMENT AND PLAN: 1. Transient episode of unresponsiveness, probably related to transient ischemic attack but also there is a possibility of seizure but I am not quite sure about it. Nobody saw any kind of seizure activity at home but she was found first on the floor and responsive but then she was left on the floor because the sister needed to some help to lift her up and when she came back she was basically unresponsive. It looks like she hit her head. All the images are negative. 2. Recent decline in mental status with increasing confusion, memory deficits, and poor comprehension over the last months. Aware. 3. Chronic kidney disease stage 3, stable. 4. Type 2 diabetes. Hemoglobin A1c is 5.9. Will continue with same management. 5. Hypertension. I have increased the dose of the hydralazine. We allowed permissive hypertension for 24 hours and yesterday I restarted her home treatment. 6. Known history of arachnoid cyst with no signs of bleeding. Will continue to monitor. 7. Gastroesophageal reflux disease. Continue with same management. 8. Generalized weakness and physical deconditioning. This patient has been placed on Physical Therapy during this hospitalization. She refused to go to a rehab center. I asked the oncology social work to find out if this patient can get home health and Physical Therapy at home. She lives with her sister. cc: Estrada Lindquist MD
--- NOTE | 2019-01-20 16:08 | CONSULTATION ---
DATE OF CONSULTATION: 01/20/2019 HISTORY: Ms. Allen is 68 years old and she had an episode 2 mornings ago with question of seizure or other neurologic event. History is taken from discussion with very attentive sister and from review of the hospital record. The patient has declined to provide first-hand history to me. Sister reports the patient has been gradually more forgetful over at least a year, probably longer, much more prominent in recent months. She has had unsteady gait for a similar time frame. There have been some falls. Sometimes, the patient is able to get herself up after falling, and therefore, all falls are not reported. Sometimes, sister assists patient up after falling. She began using a cane within the last year or so. Sister has not been aware of any focal weakness or other focal neurologic feature. She has not recognized unconsciousness or altered awareness. Two days ago, the patient apparently fell in the bathroom and yelled for sister to assist her. Sister came and saw that she would need some help to get patient up, so went to call 911. When sister returned just a minute or so later, patient was on the bathroom floor, sometimes eyes closed, lips moving but not speaking, not responding to the sister. She was brought to the hospital, evaluated and admitted. Workup here includes brain MRI which did not show anything new. She has large left hemisphere cyst which sister reports has been known for a long time. We have 2013 MRI report here with similar findings reported. Carotid ultrasound was unremarkable. Echocardiogram did not report evidence of source of embolus. Lab here shows blood sugars 140s-160s. Creatinine has been 1.3 to 1.4. Total cholesterol 199. Triglycerides were 224. Urine drug screen was all negative. I have reviewed the medication list as recorded in the computer. Sister reports patient has not allowed supervision of medicines and she does not have confidence patient has been taking her medications correctly. She was started on insulin a few months ago and sister has administered the insulin doses correctly since then but patient has not had supervision over the other medicines. The medicine list does not contain anything that likely would be associated with this a withdrawal or significant intoxication syndrome with usual use, but we cannot be certain about her recent medication use. Sister does not believe there have been trials with medicine to help memory. She has been afebrile. Initial systolic blood pressures were over 200. Recent systolic blood pressures have ranged 140s to 190s. On exam, Ms. Braden is awake and alert. She seems attentive. She declined to answer some questions. She was reporting urgency to get to the bedside commode. History from the sister was taken in the hallway. IMPRESSION: 1. History of baseline cognitive impairment, possibly major neurocognitive disorder/dementia. Cholinesterase inhibitor trial might be considered when practical. 2. With baseline cognitive impairment, we might see encephalopathy associated with any toxic or metabolic disturbance, but I cannot identify a specific toxic or metabolic problem right now. 3. Presenting history is consistent with partial seizure. In retrospect, she might have had other periods of altered awareness causing falls and inattention which might make her cognitive impairment seem more prominent. I will order EEG and further plans will depend on that. 4. There is history of gait instability and falling. We discussed apraxia as a possibility. I suggested to sister that the patient consider rehab assignment. This subject had been discussed with her by Dr. Rodriguez and patient has apparently declined rehab. In light of her apparent cognitive impairment, we might be able to declare her incompetent to make this decision. Thanks for asking Neurology to see Ms. Allen. Further plans will depend on the EEG. cc: MD GONZALO Morris III
[2019-01-20] MEDS: SINGULAIR PO SCH (20:01)
[2019-01-20] MEDS: LIPITOR PO SCH (20:01)
--- NOTE | 2019-01-20 21:19 | EEG REPORT ---
DATE: 01/20/2019 EEG #: [id number] COMMENT: This is a digitally recorded EEG on a 68-year-old patient with apparent baseline cognitive impairment, recent episode of altered awareness, question of seizure. FINDINGS: During waking, movement and muscle contraction artifacts are sometimes prominent, but overall, interpretation is not hindered. There is 9-10 Hz posterior rhythm present symmetrically with normal reactivity to eye opening. Background contains polymorphic and rhythmic theta frequencies over the frontal and central regions symmetrically. Photic stimulation produced some eye blink artifact and some symmetric photic entrainment. Drowsing occurred briefly. Stage 2 sleep was not recorded. No definite epileptiform discharge was identified. INTERPRETATION: Normal EEG. CORRELATION: The absence of epileptiform discharges on a single EEG does not exclude a clinical diagnosis of seizures. EEG is often normal with early dementia. cc: Salomon Redman III, MD
[2019-01-21 05:16] LABS: CALCIUM 8.8 mg/dL (8.8-10.2); CREATININE 1.4 mg/dL (0.5-0.9); POTASSIUM 3.9 mmol/L (3.5-5.1)
[2019-01-21] MEDS: HUMALOG SUBQ SCH ×2 (06:43→11:30)
[2019-01-21] MEDS ORDERED: NORVASC PO SCH (09:00)
[2019-01-21] MEDS: PEPCID PO SCH (09:28)
[2019-01-21] MEDS: ZOLOFT PO SCH (09:28)
[2019-01-21] MEDS: LOPRESSOR PO SCH (09:28)
[2019-01-21] MEDS: APRESOLINE PO SCH ×2 (09:28→13:18)
[2019-01-21] MEDS: PRINIVIL PO SCH (09:28)
[2019-01-21] MEDS: KLOR-CON PO SCH (09:28)
[2019-01-21] MEDS: LASIX PO SCH (09:29)
--- NOTE | 2019-01-21 11:39 | PROGRESS NOTE ---
DATE: 01/21/2019 SUBJECTIVE: Patient is resting comfortably in bed. She is oriented. She is following commands. She is still refusing to go to a rehab center. The sister has suggested to us to walk with a walker here to see if she can be able to transfer to the bathroom, so she can take her home if Neurology Department is not going to give her any more treatment. OBJECTIVE: Vital Signs: Temperature 98.4 degrees, pulse 65, respiratory rate 14, blood pressure 158/93, oxygen saturation 94% on 2 L of nasal cannula. HEENT: Head normocephalic. She does have a hematoma on the left maxillary area and also pain to palpation at that level, especially left parietal area. Neck: Supple. No JVD. Central trachea. Chest: Clear to auscultation. No wheezing. No rales. Abdomen: Soft, protuberant, nontender, nondistended. No hepatosplenomegaly. Extremities: No edema, no clubbing, no cyanosis. Neurological: This patient is awake. She is alert. She is following commands. She is oriented. She does have some intellectual impairment. LABORATORY DATA: Sodium 143, potassium 3.9, chloride 101, bicarbonate 32, BUN 21, creatinine 1.4, glucose 145, calcium 8.8. ASSESSMENT AND PLAN: 1. Transient episode of unresponsiveness in a patient with a baseline cognitive impairment and/or major neuro cognitive disorder/dementia. She has been evaluated by Neurology Department. We will continue following their recommendation. This could be related to a partial seizure. EEG did not show any abnormality. I will follow their recommendations. 2. Recent decline in mental status with cognitive increasing confusion, memory deficits and poor comprehension over the last month, aware. As above. 3. Chronic kidney disease, stage III, stable. 4. Type 2 diabetes. Hemoglobin A1c 5.9. We will continue with same management. 5. Hypertension. Yesterday increased the dose of hydralazine but the blood pressure is still elevated, so I will put this patient on amlodipine as well twice a day. 6. Known history of arachnoid cyst with no signs of bleeding. We will continue to monitor. 7. Gastroesophageal reflux disease. Continue with the same management. 8. Generalized weakness and physical deconditioning and some problems with balance. She has been on physical therapy during this hospitalization and she is refusing adamantly to go to rehab center. She wants to go home with home health and physical therapy at home. I pulled her sister out of the room and I talked to her about this. She will try to convince this patient to go to a rehab center. She also requested to walk with a walker to see if she is able to go to the bathroom so she can take her home. cc: Estrada Lindquist MD
[2019-01-21 13:43] VITALS: BP 167/54
[2019-01-22] MEDS ORDERED: LEVEMIR SUBQ SCH (09:00)
--- NOTE | 2019-01-22 11:56 | DISCHARGE SUMMARY ---
ADMISSION DATE: 01/18/2019 DISCHARGE DATE: 01/21/2019 DISCHARGE DIAGNOSES: 1. Transient episode of unresponsiveness in a patient with baseline cognitive impairment and/or neuro cognitive disorder/dementia, possible partial seizure. 2. Recent decline in mental status with cognitive increasing confusion, memory deficit and poor comprehension over the last month. 3. Chronic kidney disease stage III. 4. Type 2 diabetes with a hemoglobin A1c of 5.9. 5. Hypertension. 6. History of arachnoid cyst with no signs of bleeding. 7. Gastroesophageal reflux disease. 8. Physical deconditioning, generalized weakness and problems with balance. PROCEDURES PERFORMED: 1. Head and cervical spine CT scan dated 01/18/2019. Impression: Left temporal arachnoid cyst. No evidence of acute intracranial disease otherwise. No evidence of acute disease in the cervical spine either. 2. Chest x-ray dated 01/18/2019. Impression: Negative exam. 3. Carotid Doppler ultrasound dated 01/18/2019: Plaque disease present in both carotid bulbs. Neither side jet produces stenosis or hemodynamic consequences. There is antegrade vertebral flow bilaterally. 4. Brain MRI dated 01/18/2019. Impression: No acute process. 5. EEG dated 01/20/2019. Impression: Normal EEG. CONSULT: Neurology Department, Dr. Redman. HOSPITAL COURSE: A 68-year-old female with a past medical history of hypertension, diabetes, CKD, arachnoid cyst presented to the emergency department via EMS after being called by the patient's sister. She was admitted on 01/18/2019. Apparently the day of admission, the patient was calling out from the bathroom and when she went to check on her, she found her lying on the floor. Apparently, this patient fell. She said at the time that she saw her, she was completely awake, alert and her normal state of mind. Then she left to get a phone to call for lifting help, but when she came back, she states that the patient was awake, but she was not verbally responding. She denied seen any seizure activity or any incontinence of stool or urine. The patient was admitted. We did a CT brain MRI, carotic Doppler ultrasound, CT scan of the head and cervical spine, and all an EEG that did not show any acute problem. Also, this patient has been evaluated by Neurology Department, who states that she has a history of baseline cognitive impairment and possible major cognitive disorder/dementia, and that they can try a cholinesterase inhibitor trial, but when practical. We might see encephalopathy associated with any toxic or metabolic disturbance, but we honestly did not see or did not identify any specific toxic or metabolic problem. This could be related with partial seizure but is hard to say. EEG is normal. Because she has some gait instability, and she has been falling, we recommended this patient to go to a rehab center and we did that on a daily basis and basically constantly, but the patient refused. 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 Also, the sister who is at the bedside, tried to talk to her but she has decided to just go home with home health. She does have a walker at home. At some point in light of her apparent cognitive impairment, we might be able to declare her incompetent to make the decision to go home and instead of going home, send her to a rehab center. I discussed this with the sister who is the only who is taking care of her, but she did not give me any answer about it. I believe she tried to avoid that conversation and she said that she wants to go home. Again, I asked the patient to go multiple times to a rehab center. I told her that she has a high possibility of falling again, but again she wants to go home. PHYSICAL EXAMINATION: Vital Signs: Temperature 98.1 degrees, pulse 62, respiratory rate 17, blood pressure 167/54, oxygen saturation 92 on room air. HEENT: Head normocephalic, no trauma. PERRLA. Neck: Supple. No JVD. No masses. Central trachea. She does have a hematoma at the level of the left maxillary area and also some pain at the level of the left parietal area with no signs of bleeding. Chest: Clear to auscultation. No wheezing. No rales. Abdomen: Soft, protuberant, nontender, nondistended. No hepatosplenomegaly. Extremities: No edema, no clubbing, no cyanosis. Neurological: The patient is awake. She is alert. She is following commands. She is oriented and she has some intellectual impairment. LABORATORY DATA: Sodium 143, potassium 3.9, chloride 101, bicarbonate 32, BUN 21, creatinine 1.4, glucose 145, calcium 8.8. DISCHARGE MEDICATIONS: 1. Acetaminophen 650 mg p.o. q.6 hours as needed. 2. DuoNeb 3 mL inhaler q.6 hours p.r.n. shortness of breath. 3. Amlodipine 5 mg p.o. b.i.d. 4. Atorvastatin 1 tablet p.o. daily. 5. Vitamin D3 5000 units p.o. daily. 6. Famotidine 20 mg p.o. daily. 7. Furosemide 40 mg p.o. daily. 8. Hydralazine 25 mg p.o. t.i.d. 9. Levemir FlexTouch 10 mg p.o. subcu daily. 10. Lisinopril 40 mg p.o. daily. 11. Metoprolol 50 mg p.o. b.i.d. 12. Montelukast 10 mg p.o. at bedtime. 13. Potassium chloride 10 mEq p.o. daily. 14. Sertraline 100 mg p.o. daily. Time discharging this patient and trying to explain that the best option for her is to go to a rehab center, time also explaining all the results to her and the sister who is at the bedside around 35 minutes. cc: Estrada Lindquist MD
== END 2019-01-21 15:26 | disposition home or self-care (01) ==
LOC: SUPCPDRO → EDBD → ED 08:23 → INTOOBSV 16:13 → 1N 16:13 → OPS 01-21 14:30
PROVIDERS: ATTEND Internal Medicine